=== PATIENT | male | born 1945 | race Caucasian/White ===

== ENCOUNTER 2017-10-07 09:04 | Day surgery (SDC) | payer MEDICARE ==
[~2017-10-07] VITALS: Ht 172.7 cm; Wt 93.2 kg
[2017-10-07] MEDS ORDERED: NITROGLYCERIN 5 MG/ML, 10ML ONE (09:37)
[2017-10-07 09:48] VITALS: BP 127/95
[2017-10-07 09:52] LABS: BASOPHILS # (AUTO) 0.06 x10^3/uL (0-0.1); BASOPHILS % (AUTO) 1 % (0-1); EOSINOPHILS # (AUTO) 0.05 x10^3/uL (0-0.4); EOSINOPHILS % (AUTO) 1 % (1-7); LYMPHOCYTES # (AUTO) 2.07 x10^3/uL (1-3.4); LYMPHOCYTES % (AUTO) 31 % (22-44); MD NO; MEAN CORPUSCULAR HEMOGLOBIN 32.9 pg (27.5-34.5); MEAN CORPUSCULAR HGB CONC 34.2 g/dL (33.2-36.2); MEAN CORPUSCULAR VOLUME 96.2 fL (81-97); MEAN PLATELET VOLUME 11.8 fL (7.4-10.4); MONOCYTES # (AUTO) 0.49 x10^3/uL (0.2-0.8); MONOCYTES % (AUTO) 8 % (2-9); NEUTROPHILS # (AUTO) 3.93 x10^3/uL (1.8-6.8); NEUTROPHILS % (AUTO) 60 % (42-75); PLATELET COUNT 182 x10^3/uL (130-400); RED BLOOD COUNT 4.89 x10^6/uL (4.38-5.82); RED CELL DISTRIBUTION WIDTH 12.6 % (9.4-14.8)
[2017-10-07] MEDS ORDERED: methylPREDNISolone SOD SUCC 125 MG/2 ML IVPush ONE (10:00)
[2017-10-07] MEDS ORDERED: DIPHENHYDRAMINE 50 MG/ML, 1ML IVPush ONE (10:00)
[2017-10-07] MEDS ORDERED: PLEASE ENTER HEIGHT AND WEIGHT MC SCH (10:00)
[2017-10-07 10:03] LABS: ANION GAP 5 mmol/L (5-15); CALCIUM 9.1 mg/dL (8.5-10.1); CHLORIDE 108 mmol/L (98-107); CREATININE 1.27 mg/dL (0.7-1.3)
[2017-10-07] MEDS ORDERED: ASPI-496 PO (10:04)
[2017-10-07] MEDS ORDERED: LISI5TAB7 PO (10:04)
[2017-10-07] MEDS ORDERED: ATOR40TA PO (10:04)
[2017-10-07] MEDS ORDERED: FENTANYL PF 100 MCG/2ML ONE ×2 (11:10→12:55)
[2017-10-07] MEDS ORDERED: MIDAZOLAM 1 MG/ML, 5ML ONE (11:10)
[2017-10-07] MEDS ORDERED: LIDOCAINE 2%, 2ML ONE (11:10)
[2017-10-07] MEDS ORDERED: PRASUGREL 10 MG TABLET ONE (11:10)
[2017-10-07] MEDS ORDERED: VERAPAMIL 2.5 MG/ML, 2ML ONE (11:10)
[2017-10-07] MEDS ORDERED: HEPARIN 1,000 UNITS/ML, 10ML ONE (11:11)
[2017-10-07] MEDS ORDERED: DIPHENHYDRAMINE 50 MG/ML, 1ML ONE (11:28)
[2017-10-07] MEDS ORDERED: methylPREDNISolone SOD SUCC 125 MG/2 ML ONE (11:28)
[2017-10-07] MEDS ORDERED: LIDOCAINE/PF 1%, 30ML ONE (12:49)
== END 2017-10-07 16:29 ==
LOC: CACL 09:04
PROVIDERS: ATTEND Internal Medicine Cardiovascular Disease
DX: I35.0 Nonrheumatic aortic (valve) stenosis (principal); I51.9 Heart disease, unspecified; I10 Essential (primary) hypertension; Z91.013 Allergy to seafood
CPT/HCPCS: 36415; 80048; 85025; 93460; 99156; 99157; C1769; C1894; J1200; J1644; J2250; J2930; J3010; J3490; Q9967